=== PATIENT | male | born 1945 | race Caucasian/White ===

== ENCOUNTER 2017-11-18 17:49 | Inpatient (IN) | payer MEDICARE, OTHER ==
[~2017-11-18] VITALS: Ht 170.2 cm; Wt 119.6 kg
[2017-11-18 19:16] LABS: HEMATOCRIT 20.9 % (39.0-50.0); HEMOGLOBIN 7.4 g/dl (14.0-18.0); MEAN CELL VOLUME 113.6 fL CALC (80.0-100.0); MEAN CORPUSCULAR HGB 40.2 pG CALC (26.0-32.0); MEAN CORPUSCULAR HGB CONC 35.4 g/L CALC (32.0-36.0); NEUT# 0.35 thou/uL (1.82-7.42); RED BLOOD COUNT 1.84 mill/uL (4.70-6.10); RED CELL DISTRI WIDTH 15.5 % (11.5-15.5)
[2017-11-18 19:21] LABS: PROTHROMBIN TIME 11.2 SECONDS (9.0-12.5)
[2017-11-18 19:36] LABS: ALBUMIN 3.9 g/dL (3.2-5.0); ALKALINE PHOSPHATASE 55 u/l (38-126); ANION GAP 16 (6-22 (CALC)); BILIRUBIN, TOTAL 0.4 mg/dL (0.0-1.4); BUN 18 mg/dL (8-23); BUN/CREATININE RATIO 20 (12-20 (CALC)); CARBON DIOXIDE 26 mmol/l (22-30); CHLORIDE 104 mmol/l (95-108); CREATININE 0.9 mg/dL (0.7-1.3); GFR > 60 ML/MIN (>=60 (CALC)); GFR FOR AFR.AMER. > 60 ML/MIN (>=60 (CALC)); POTASSIUM 4.1 mmol/l (3.5-5.1); SGOT/AST 22 u/l (19-48); SGPT/ALT 31 u/l (11-66); SODIUM 142 mmol/l (137-146)
[2017-11-18 19:48] LABS: MYOGLOBIN 36 ng/mL (0 - 121)
[2017-11-18 22:45] VITALS: BP 131/65
[2017-11-18 23:00] VITALS: BP 114/67
[2017-11-18 23:15] VITALS: BP 109/60
[2017-11-18 23:30] VITALS: BP 111/58
[2017-11-19] VITALS (16 sets, daily range): BP systolic 90–122; BP diastolic 43–58
[2017-11-19 00:16] LABS: HEMATOCRIT 18.6 % (39.0-50.0); HEMOGLOBIN 6.6 g/dl (14.0-18.0)
[2017-11-19] MEDS ORDERED: ALTOPREV20 MG PO (04:07)
[2017-11-19] MEDS ORDERED: RANITIDINE150 M1 PO (04:08)
[2017-11-19] MEDS ORDERED: METOPROL TAR25 MG PO (04:08)
[2017-11-19] MEDS ORDERED: LASIX 40 MG40 MG/TAB PO (04:09)
[2017-11-19] MEDS ORDERED: K-DUR/KLOR-CON20 MEQ PO (04:09)
[2017-11-19] MEDS ORDERED: ANORO ELLIPTA 61 AER IN (04:10)
[2017-11-19] MEDS ORDERED: ASPIRIN 81 LOW81 MG PO (04:10)
[2017-11-19] MEDS ORDERED: PROAIR HFA108 MCG/AC PO (04:11)
[2017-11-19 07:49] LABS: HEMOGLOBIN 8.8 g/dl (14.0-18.0)
[2017-11-19 12:26] LABS: HEMATOCRIT 24.2 % (39.0-50.0); HEMOGLOBIN 8.6 g/dl (14.0-18.0)
[2017-11-19 15:41] LABS: URINE BILIRUBIN - DIPSTICK NEGATIVE (NEGATIVE); URINE BLOOD DIPSTICK NEGATIVE (NEGATIVE); URINE COLOR YELLOW; URINE GLUCOSE - DIPSTICK NEGATIVE (NEGATIVE); URINE KETONE NEGATIVE (NEGATIVE); URINE LEUK ESTERASE NEGATIVE (NEGATIVE); URINE NITRITE - DIPSTICK NEGATIVE (Negative); URINE PH 5.5 (4.5-8.0); URINE PROTEIN - DIPSTICK NEGATIVE (NEG-TRACE); URINE SPECIFIC GRAVITY 1.025; URINE UROBILINOGEN - DIPSTICK 0.2 E.U./dL (0.2)
[2017-11-19 15:54] LABS: URINE CLARITY CLEAR
[2017-11-19 18:55] LABS: HEMOGLOBIN 8.8 g/dl (14.0-18.0)
[2017-11-20 00:53] VITALS: BP 94/45
[2017-11-20 05:12] VITALS: BP 92/52
[2017-11-20 05:36] LABS: ANION GAP 18 (6-22 (CALC)); BUN 31 mg/dL (8-23); BUN/CREATININE RATIO 38 (12-20 (CALC)); CARBON DIOXIDE 21 mmol/l (22-30); CHLORIDE 104 mmol/l (95-108); CREATININE 0.8 mg/dL (0.7-1.3); GFR > 60 ML/MIN (>=60 (CALC)); GFR FOR AFR.AMER. > 60 ML/MIN (>=60 (CALC)); POTASSIUM 4.5 mmol/l (3.5-5.1); SODIUM 139 mmol/l (137-146)
[2017-11-20 06:19] LABS: HEMATOCRIT 24.5 % (39.0-50.0); HEMOGLOBIN 8.7 g/dl (14.0-18.0); MEAN CELL VOLUME 106.5 fL CALC (80.0-100.0); MEAN CORPUSCULAR HGB 37.8 pG CALC (26.0-32.0); MEAN CORPUSCULAR HGB CONC 35.5 g/L CALC (32.0-36.0); RED BLOOD COUNT 2.3 mill/uL (4.70-6.10); RED CELL DISTRI WIDTH 17.5 % (11.5-15.5)
[2017-11-20 07:53] VITALS: BP 111/69
[2017-11-20 07:55] LABS: HEMATOCRIT 24.4 % (39.0-50.0); HEMOGLOBIN 8.7 g/dl (14.0-18.0); IMMATURE GRANULOCYTES 1.4 % (0.0-1.0); MANUAL DIFFERENTIAL YES; MEAN CELL VOLUME 106.1 fL CALC (80.0-100.0); MEAN CORPUSCULAR HGB 37.8 pG CALC (26.0-32.0); MEAN CORPUSCULAR HGB CONC 35.7 g/L CALC (32.0-36.0); PLATELET COUNT 107 thou/uL (130-400); RED CELL DISTRI WIDTH 17.4 % (11.5-15.5)
[2017-11-20 08:16] LABS: ANISOCYTOSIS FEW; BAND 1 % (0-8); NUCLEATED RED BLOOD CELL 1 /100WBC (0-1); PLATELET ESTIMATE SLIGHT DECREASE; POIKILOCYTOSIS FEW; SCHISTOCYTES FEW; SPHEROCYTE FEW; TEAR DROP CELLS FEW
[2017-11-20 11:12] VITALS: BP 95/54
[2017-11-20 15:45] VITALS: BP 97/58
== END 2017-11-20 18:40 | disposition short-term general hospital (02) | DRG 840 ==
LOC: ED 17:49 → ED-I 21:16 → ED 21:43 → ICU 21:44 → MS2 11-19 19:30 → UNDODEPER 11-19 22:40 → MS2 11-20 18:40
PROVIDERS: Emergency Medicine; Internal Medicine; ADMIT Internal Medicine; ATTEND Internal Medicine
PROC: 30233N1 Transfusion of Nonautologous Red Blood Cells into Peripheral Vein, Percutaneous Approach (ICD-10-PCS; principal; 2017-11-19)
PROC: 30233N1 Transfusion of Nonautologous Red Blood Cells into Peripheral Vein, Percutaneous Approach (ICD-10-PCS; 2017-11-19)
PROC: 5A09357 Assistance with Respiratory Ventilation, Less than 24 Consecutive Hours, Continuous Positive Airway Pressure (ICD-10-PCS; 2017-11-19)
DX: C95.90 Leukemia, unspecified not having achieved remission (principal); J18.9 Pneumonia, unspecified organism; D61.818 Other pancytopenia; I27.20 Pulmonary hypertension, unspecified; I71.2 Thoracic aortic aneurysm, without rupture; Z99.81 Dependence on supplemental oxygen; J44.1 Chronic obstructive pulmonary disease with (acute) exacerbation; J44.0 Chronic obstructive pulmonary disease with (acute) lower respiratory infection; D46.9 Myelodysplastic syndrome, unspecified; I10 Essential (primary) hypertension; I25.10 Atherosclerotic heart disease of native coronary artery without angina pectoris; G47.33 Obstructive sleep apnea (adult) (pediatric); Z95.2 Presence of prosthetic heart valve; Z87.891 Personal history of nicotine dependence
CPT/HCPCS: P9016; Q9967; S0164